=== PATIENT | female | born 1980 | race African-American/Black ===

== ENCOUNTER → 2018-06-07 | Outpatient (CLI) | payer BC ==
[2018-06-07 17:00] LABS: ABSOLUTE BASOPHILS # (AUTO) 0.1 10^3/uL (0.0-0.2); ABSOLUTE EOSINOPHILS # (AUTO) 0.2 10^3/uL (0.0-0.6); ABSOLUTE LYMPHOCYTES (AUTO) 1.7 10^3/uL (0.5-4.7); ABSOLUTE MONOCYTES (AUTO) 0.8 10^3/uL (0.1-1.4); ABSOLUTE NEUT (AUTO) 7.3 10^3/uL (1.7-8.2); BASOPHILS % (AUTO) 0.7 % (0-2); HEMATOCRIT 36.9 % (36.0-47.0); HEMOGLOBIN 12.3 g/dL (12.0-15.5); LYMPHOCYTES % (AUTO) 17.2 % (13-45); MEAN CORPUSCULAR HEMOGLOBIN 26.8 pg (27.0-33.4); MEAN CORPUSCULAR HGB CONC 33.4 g/dL (32.0-36.0); MEAN CORPUSCULAR VOLUME 80 fl (80-97); MONOCYTES % (AUTO) 8.1 % (3-13); PLATELET COUNT 336 10^3/uL (150-450); RED BLOOD COUNT 4.59 10^6/uL (3.72-5.28); RED CELL DISTRIBUTION WIDTH 14.8 % (11.5-14.0); TOTAL CELLS COUNTED % (AUTO) 100 %; WHITE BLOOD COUNT 10.1 10^3/uL (4.0-10.5)
[2018-06-07 17:36] LABS: ALANINE AMINOTRANSFERASE 27 U/L (9-52); ALBUMIN 3.5 g/dL (3.5-5.0); ALKALINE PHOSPHATASE 122 U/L (38-126); ANION GAP 12 (5-19); ASPARTATE AMINO TRANSFERASE 25 U/L (14-36); BILIRUBIN,DIRECT 0.2 mg/dL (0.0-0.4); BILIRUBIN,TOTAL 0.2 mg/dL (0.2-1.3); BLOOD UREA NITROGEN 5 mg/dL (7-20); CALCIUM 9.8 mg/dL (8.4-10.2); CARBON DIOXIDE 20 mmol/L (22-30); CHLORIDE 107 mmol/L (98-107); GLUCOSE 90 mg/dL (75-110); SODIUM 138.5 mmol/L (137-145); TOTAL PROTEIN 6.8 g/dL (6.3-8.2); URIC ACID 3.7 mg/dL (2.5-7.0)
[2018-06-08 16:15] LABS: URINE PROTEIN 13.3 mg/dL (<12)
[2018-06-08 16:18] LABS: 24 HOUR URINE PROTEIN RESULT 382 mg/day (42-225)
== END ==
LOC: LAB 16:39 → LR 06-10 23:58 → UNDOADMIN 06-10 23:58
PROVIDERS: ATTEND Advanced Practice Midwife
DX: O13.9 Gestational [pregnancy-induced] hypertension without significant proteinuria, unspecified trimester (principal)
CPT/HCPCS: 36415; 80053; 83615; 84156; 84550; 85025

== ENCOUNTER 2018-06-11 00:03 | Inpatient (IN) | payer BC ==
[2018-06-11] MEDS ORDERED: DINOPROSTONE 10 MG VAGINAL INSERT.SR PV PRN (00:06)
[2018-06-11] MEDS ORDERED: RINGERS SOLUTION,LACTATED 300 ML IV ONE (00:06)
[2018-06-11] MEDS ORDERED: RINGERS SOLUTION,LACTATED 1,000 ML IV PRN (00:06)
[2018-06-11 00:39] LABS: ABSOLUTE EOSINOPHILS # (AUTO) 0.2 10^3/uL (0.0-0.6); ABSOLUTE LYMPHOCYTES (AUTO) 2.1 10^3/uL (0.5-4.7); ABSOLUTE MONOCYTES (AUTO) 0.8 10^3/uL (0.1-1.4); ABSOLUTE NEUT (AUTO) 6.8 10^3/uL (1.7-8.2); BASOPHILS % (AUTO) 0.4 % (0-2); EOSINOPHILS % (AUTO) 2.1 % (0-6); HEMATOCRIT 37.5 % (36.0-47.0); HEMOGLOBIN 12.6 g/dL (12.0-15.5); LYMPHOCYTES % (AUTO) 20.9 % (13-45); MEAN CORPUSCULAR HEMOGLOBIN 27.2 pg (27.0-33.4); MEAN CORPUSCULAR HGB CONC 33.6 g/dL (32.0-36.0); MEAN CORPUSCULAR VOLUME 81 fl (80-97); MONOCYTES % (AUTO) 8.3 % (3-13); PLATELET COUNT 362 10^3/uL (150-450); RED BLOOD COUNT 4.62 10^6/uL (3.72-5.28); RED CELL DISTRIBUTION WIDTH 15.2 % (11.5-14.0); SEGMENTED NEUTROPHILS % (AUTO) 68.3 % (42-78); TOTAL CELLS COUNTED % (AUTO) 100 %
[2018-06-11 00:46] LABS: APPEARANCE,URINE CLEAR; BILIRUBIN,URINE NEGATIVE (NEGATIVE); COLOR,URINE STRAW; GLUCOSE, URINE NEGATIVE (NEGATIVE); KETONES,URINE NEGATIVE (NEGATIVE); LEUKOCYTE ESTERASE,URINE MODERATE (NEGATIVE); NITRITE,URINE NEGATIVE (NEGATIVE); PROTEIN,URINE NEGATIVE (NEGATIVE); URINE SPECIFIC GRAVITY 1.006; UROBILINOGEN,URINE NEGATIVE mg/dL (<2.0)
[2018-06-11 00:48] LABS: ALANINE AMINOTRANSFERASE 30 U/L (9-52); ALBUMIN 3.6 g/dL (3.5-5.0); ALKALINE PHOSPHATASE 131 U/L (38-126); ANION GAP 15 (5-19); ASPARTATE AMINO TRANSFERASE 25 U/L (14-36); BILIRUBIN,DIRECT 0.2 mg/dL (0.0-0.4); BILIRUBIN,TOTAL 0.3 mg/dL (0.2-1.3); BLOOD UREA NITROGEN 7 mg/dL (7-20); CALCIUM 9.6 mg/dL (8.4-10.2); CARBON DIOXIDE 17 mmol/L (22-30); CHLORIDE 107 mmol/L (98-107); GLUCOSE 110 mg/dL (75-110); POTASSIUM 4.1 mmol/L (3.6-5.0); SODIUM 138.5 mmol/L (137-145); TOTAL PROTEIN 6.4 g/dL (6.3-8.2); URIC ACID 3.8 mg/dL (2.5-7.0)
[2018-06-11 01:01] LABS: URINE AMPHETAMINES SCREEN NEGATIVE; URINE BARBITURATES SCREEN NEGATIVE; URINE BENZODIAZEPINES SCREEN NEGATIVE; URINE COCAINE SCREEN NEGATIVE; URINE MARIJUANA (THC) SCREEN NEGATIVE; URINE METHADONE SCREEN NEGATIVE; URINE PHENCYCLIDINE SCREEN NEGATIVE
[2018-06-11] MEDS ORDERED: DINOPROSTONE 10 MG VAGINAL INSERT.SR ONE (03:46)
--- NOTE | 2018-06-11 08:18 | Admission Physical ---
Datetime Report Generated by CPN: 06/11/2018 08:18 CURRENT ADMISSION Hx Assessment: The History has been Reviewed and is Current Chief Complaint: Scheduled Induction of Labor Indication for Induction: Chronic Primary/Essential HTN; Maternal Diabetes Indication for Induction- Other: AMA Admit Impression : Term, Intrauterine ; No Active Labor; Intact Membranes Admit Plan: Admit to Unit ALLERGIES Medication Allergies: No Medication Allergies: No Known Allergies (06/11/2018) Latex: No Latex Allergies OBSTETRICAL HISTORY EDC: 06/19/2018 00:00 : 3 Para: 1 Term: 0 : 0 SAB: 1 IAB: 0 Ectopic: 0 Livin Cesareans: 0 VBACs: 0 Multiple Births: 0 Gestational Diabetes: No Rh Sensitization: No Incompetent Cervix: No CRISTAL: No Infertility: No ART Treatment: No Uterine Anomaly: No IUGR: No Hx Previous C/S: No Macrosomia: No Hx Loss/Stillborn: Yes PIH: No Hx : No Placenta Previa/Abruption: No Depression/PP Depression: No PTL/PROM: No Post Hemorrhage: No Current Procedures: Ultrasound; NST SEE RECORDS Alcohol: No Marijuana : No Cocaine: No Other Illicit Drugs: No Cigarettes: Never Smoker. 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 Surgery: No Heart Disease: No Hosp/Surgery: Yes Autoimmune Disorder: No Anesthetic Complications: No Kidney Disease: No Abnormal Pap Smear: No Neuro/Epilepsy: No Psychiatric Disorders: No Other Medical Diseases: No Hepatitis/Liver Disease: No Significant Family History: No Varicosities/Phlebitis: No Trauma/Violence : No Thyroid Dysfunction: No Medical History Comments: Childbirth, hx stillbirth @ 33wks; GDM-glyburide INFECTIOUS HISTORY Gonorrhea: No Genital Herpes: No Chlamydia: No Tuberculosis: No Syphilis: No Hepatitis: No HIV/AIDS Exposure: No Rash or Viral Illness: No HPV: No PHYSICAL EXAM General: Normal HEENT: Deferred Neurologic: Normal Thyroid: Normal Heart: Normal Lungs: Normal Breast: Deferred Back: Normal Abdomen: Normal Genitourinary Exam: Normal Extremities: Normal DTRs: Normal Pelvic Type: Adequate Physical Exam Comments: AMA, GDM on Glyburide Hx IUFD @ 33 weeks Gestational HTN, on Procardia 30 MFM consult Vital Signs: Reviewed MEMBRANES Membranes: Intact FETUS A EGA: 38.6 Monitoring: External US Admit Comment: G3 P 1, SAB 2011= 33.6 weeks IUFD Admitted for IOL, A + Cervidil in place, out at 1530 + GBS Family at , POC discussed with pt, VS reviewed, Cat 1 PLANS FOR LABOR AND DELIVERY Labor and Delivery: None Pain Management: Natural; Medications; Epidural Feeding Preference: Both INFORMED CONSENT Assignment: Mónica Corley MD Signature: with User ID: Sera : with User ID: Sera
[2018-06-11] MEDS: DEXTROSE 5%-LACTATED RINGERS 1,000 ML IV PRN ×2 (10:15→21:14)
--- NOTE | 2018-06-11 12:31 | L&D Progress Notes ---
PROGRESS NOTES Datetime Report Generated by CPN: 06/11/2018 12:31 PROGRESS NOTE Comment: Cervidil still in place, eating lunch, family at BS, Cat 1 strip MEMBRANES Membranes: Intact SIGNATURE SIGNATURE: ,[id number];,[id number] SIGNATURE: ,[id number] Assignment: Mónica Corley MD Signature: with User ID: Sera : with User ID: Sera
[2018-06-11] MEDS ORDERED: MISOPROSTOL 0.1 MG TABLET PV ONE ×2 (17:46→22:13)
[2018-06-11] MEDS ORDERED: MISOPROSTOL 0.1 MG TABLET PO ONE ×2 (17:46→22:11)
[2018-06-11] MEDS ORDERED: OXYTOCIN/NORMAL SALINE 20 UNIT/1,000 ML RTUINJ IV PRN (17:46)
[2018-06-11] MEDS ORDERED: MISOPROSTOL 0.1 MG TABLET ONE ×2 (17:52→22:10)
[2018-06-12 01:30] LABS: ABSOLUTE BASOPHILS # (AUTO) 0.1 10^3/uL (0.0-0.2); ABSOLUTE EOSINOPHILS # (AUTO) 0.2 10^3/uL (0.0-0.6); ABSOLUTE MONOCYTES (AUTO) 0.7 10^3/uL (0.1-1.4); ABSOLUTE NEUT (AUTO) 6.5 10^3/uL (1.7-8.2); BASOPHILS % (AUTO) 0.8 % (0-2); EOSINOPHILS % (AUTO) 1.9 % (0-6); HEMATOCRIT 35.6 % (36.0-47.0); HEMOGLOBIN 11.7 g/dL (12.0-15.5); LYMPHOCYTES % (AUTO) 20.8 % (13-45); MEAN CORPUSCULAR HEMOGLOBIN 26.7 pg (27.0-33.4); MEAN CORPUSCULAR HGB CONC 32.9 g/dL (32.0-36.0); MEAN CORPUSCULAR VOLUME 81 fl (80-97); MONOCYTES % (AUTO) 7.1 % (3-13); PLATELET COUNT 322 10^3/uL (150-450); RED CELL DISTRIBUTION WIDTH 15.4 % (11.5-14.0); SEGMENTED NEUTROPHILS % (AUTO) 69.4 % (42-78); TOTAL CELLS COUNTED % (AUTO) 100 %; WHITE BLOOD COUNT 9.4 10^3/uL (4.0-10.5)
[2018-06-12] MEDS ORDERED: FENTANYL CITRATE INJ/PF 100 MCG/2 ML AMPUL ONE (01:58)
[2018-06-12] MEDS ORDERED: EPHEDRINE SULFATE INJ 50 MG/1 ML AMPULE ONE (01:58)
[2018-06-12] MEDS ORDERED: BUPIVACAINE HCL 0.25 % INJ/PF (2.5 MG/1 ML) 30 ML VIAL ONE (01:59)
[2018-06-12] MEDS ORDERED: FENTANYL/BUPIVACAINE/NS/PF 300 MCG/150 ML RTUINJ EPI ONE ×2 (01:59→12:34)
[2018-06-12] MEDS ORDERED: OXYTOCIN/NORMAL SALINE 20 UNIT/1,000 ML RTUINJ ONE ×2 (02:36)
[2018-06-12] MEDS ORDERED: LIDOCAINE 1% INJ-PF (10 MG/ML) 30 ML SDV ONE (02:36)
[2018-06-12] MEDS ORDERED: MISOPROSTOL 0.2 MG TABLET ONE (02:36)
[2018-06-12] MEDS ORDERED: PENICILLIN G-K 5 MILLION UNIT VIAL ONE ×3 (05:50→13:51)
--- NOTE | 2018-06-12 09:34 | L&D Progress Notes ---
PROGRESS NOTES Datetime Report Generated by CPN: 06/12/2018 09:33 PROGRESS NOTE Impression: Reassuring Heart Rate Plan: Continue Present Management; Induction Informed Consent Obtained: Vaginal Delivery Vital Signs : Reviewed; Within Normal Limits Comment: Cat 1 strip, Irregular UC's FETUS A FHR - Baseline: 130 Monitoring: External US Variability: Moderate 6-25bpm Accelerations: 15X15 Decelerations: None FETUS C SIGNATURE: 13,[id number];10,[id number] Assignment: Bailey Calzada MD Signature: with User ID: Sera : with User ID: Sera
--- NOTE | 2018-06-12 11:46 | L&D Progress Notes ---
PROGRESS NOTES Datetime Report Generated by CPN: 06/12/2018 11:46 PROGRESS NOTE Vital Signs : Reviewed; Within Normal Limits Comment: Irregular uc's, Cat 1 strip, epidural in place, feeling uc's FETUS A FHR - Baseline: 130 Variability: Moderate 6-25bpm Accelerations: 15X15 Decelerations: Variable FETUS C SIGNATURE: [id number];13,[id number] Assignment: Bailey Calzada MD Signature: with User ID: Sera : with User ID: Sera
[2018-06-12] MEDS ORDERED: LIDOCAINE 1.5%/EPINEPHRINE INJ-PF 30 ML SDV ONE (12:31)
[2018-06-12] MEDS ORDERED: SODIUM BICARBONATE 8.4% INJ 50 MEQ/50 ML DISP.SYRIN ONE (12:34)
[2018-06-12] MEDS ORDERED: DIPHENHYDRAMINE HCL 25 MG CAPSULE PO PRN (15:38)
[2018-06-12] MEDS ORDERED: PSEUDOEPHEDRINE HCL 30 MG TABLET PO PRN (15:38)
[2018-06-12] MEDS ORDERED: PROMETHAZINE HCL 25 MG TABLET PO PRN (15:38)
[2018-06-12] MEDS ORDERED: MEASLES,MUMPS&RUBELLA VACC/PF 0.5 ML VIAL SUBCUT PRN ×2 (15:38→16:09)
[2018-06-12] MEDS ORDERED: PROMETHAZINE HCL INJ 25 MG/1 ML VIAL IV PRN (15:38)
[2018-06-12] MEDS ORDERED: OXYTOCIN/NORMAL SALINE 20 UNIT/1,000 ML RTUINJ IV PRN ×2 (15:38→16:09)
[2018-06-12] MEDS ORDERED: ZOLPIDEM TARTRATE 5 MG TABLET PO PRN (15:38)
[2018-06-12] MEDS ORDERED: PROMETHAZINE HCL 25 MG SUPP.RECT PR PRN (15:38)
[2018-06-12] MEDS ORDERED: ACETAMINOPHEN 650 MG SUPP.RECT PR PRN (15:38)
[2018-06-12] MEDS ORDERED: MAGNESIUM HYDROXIDE SUSP 30 ML UDCUP PO PRN (15:38)
[2018-06-12] MEDS ORDERED: ACETAMINOPHEN WITH CODEINE #3 TABLET PO PRN ×4 (15:38→16:09)
[2018-06-12] MEDS ORDERED: DIPH/PERTUSS(ACELL)/TETANUS VAC/PF 0.5 ML SYR (>=10YO) IM PRN ×2 (15:38→16:09)
[2018-06-12] MEDS ORDERED: GLYCERIN/WITCH HAZEL LEAF 1 EACH MED..PAD TP PRN (15:38)
[2018-06-12] MEDS ORDERED: DIBUCAINE 1% OINTMENT 28 GM TP PRN ×2 (15:38→16:09)
[2018-06-12] MEDS ORDERED: BENZOCAINE/MENTHOL AEROSOL SPRAY 56 ML TOP PRN ×2 (15:38→16:09)
[2018-06-12] MEDS ORDERED: NA PHOS,M-B/NA PHOS,DI-BA (ADULT) 133 ML ENEMA PR PRN (15:38)
[2018-06-12] MEDS ORDERED: NALBUPHINE HCL INJ 10 MG/1 ML AMPULE INJ ONE (15:45)
[2018-06-12] MEDS ORDERED: MISOPROSTOL 0.2 MG TABLET PR PRN (16:09)
--- NOTE | 2018-06-12 16:53 | Warning Signs in Babies ---
VOD Warning Signs Datetime Report Generated by [facility]: 06/12/2018 16:53 VOD#608 -Warning Signs in Babies: Needs to be viewed. (06/12/2018 16:15:Ninoska Colrey RN)
[2018-06-12] MEDS ORDERED: DOCUSATE SODIUM 100 MG CAPSULE PO SCH (18:00)
[2018-06-12] MEDS ORDERED: FERROUS SULFATE 325 MG TABLET PO SCH (18:00)
[2018-06-12] MEDS: NIFEDIPINE 30 MG TAB.ER.24 PO SCH (19:01)
[2018-06-12] MEDS: IBUPROFEN 800 MG TABLET PO SCH (21:43)
[2018-06-12] MEDS: FAMOTIDINE 20 MG TABLET PO SCH (21:43)
[2018-06-12] MEDS ORDERED: IBUPROFEN 800 MG TABLET PO SCH (22:00)
[2018-06-13] MEDS: IBUPROFEN 800 MG TABLET PO SCH ×3 (05:15→21:23)
[2018-06-13 07:16] LABS: HEMOGLOBIN 11.3 g/dL (12.0-15.5); MEAN CORPUSCULAR HEMOGLOBIN 26.4 pg (27.0-33.4); MEAN CORPUSCULAR HGB CONC 32.3 g/dL (32.0-36.0); MEAN CORPUSCULAR VOLUME 82 fl (80-97); PLATELET COUNT 370 10^3/uL (150-450); RED BLOOD COUNT 4.28 10^6/uL (3.72-5.28); RED CELL DISTRIBUTION WIDTH 15.1 % (11.5-14.0); WHITE BLOOD COUNT 17.8 10^3/uL (4.0-10.5)
[2018-06-13] MEDS: DOCUSATE SODIUM 100 MG CAPSULE PO SCH ×3 (09:37→17:47)
[2018-06-13] MEDS: FERROUS SULFATE 325 MG TABLET PO SCH ×3 (09:37→17:48)
[2018-06-13] MEDS: NIFEDIPINE 30 MG TAB.ER.24 PO SCH ×2 (09:39→17:47)
[2018-06-13] MEDS: FAMOTIDINE 20 MG TABLET PO SCH ×2 (09:44→21:23)
[2018-06-13] MEDS: PRENATAL VITAMIN W DHA CAPSULE PO SCH (09:44)
[2018-06-13] MEDS: SENNOSIDES/DOCUSATE 8.6-50 MG 1 EACH TABLET PO SCH (09:50)
[2018-06-13] MEDS ORDERED: SENNOSIDES/DOCUSATE 8.6-50 MG 1 EACH TABLET PO SCH (10:00)
[2018-06-13] MEDS ORDERED: PRENATAL VITAMIN W DHA CAPSULE PO SCH (10:00)
--- NOTE | 2018-06-13 10:49 | PDOC PROGRESS REPORT ---
Subjective-OB Progress Note for:: 06/13/18 Subjective: pt without complaints Physical Exam (OB) Vital Signs: Temp Pulse Resp BP Pulse Ox 97.9 F 77 15 127/67 H 98 06/13/18 08:03 06/13/18 08:03 06/13/18 08:03 06/13/18 08:03 06/13/18 08:03 Intake & Output 06/12/18 06/13/18 06/14/18 06:59 06:59 06:59 Intake Total 1000 1000 Balance 1000 1000 - General General Appearance: Appears well - PIH/Pre-Eclampsia DTR's: 1 + Clonus: Negative Headache: Absent Epigastric Pain: No Visual Changes: No - Lochia Lochia Amount: Scant < 10 ml Lochia Color: Rubra/Red - Abdomen Description: Firm, Soft Hernia Present: No Flatus Presence: Present Fundal Description: Firm Fundal Height: u/u - u/2 - Extremities Calf: Nontender Objective-Diagnostic Laboratory: 06/13/18 06:42 06/11/18 00:22 06/13/18 06:42 WBC 17.8 H RBC 4.28 Hgb 11.3 L Hct 35.0 L MCV 82 MCH 26.4 L MCHC 32.3 RDW 15.1 H Plt Count 370 Assessment and Plan(PN) - Assessment and Plan (1) AMA (advanced maternal age) primigravida 35+ Qualifiers: Trimester: unspecified trimester Qualified Code(s): O09.519 - Supervision of elderly primigravida, unspecified trimester Is this a current diagnosis for this admission?: Yes (2) Gestational diabetes mellitus Qualifiers: Gestational diabetes mellitus control: oral hypoglycemic-controlled Is this a current diagnosis for this admission?: Yes (3) Vacuum extraction, delivered, current hospitalization Is this a current diagnosis for this admission?: Yes - Time Spent with Patient Time with patient: Less than 15 minutes - Disposition Anticipated Discharge: Home Within: within 24 hours
[2018-06-14] MEDS: IBUPROFEN 800 MG TABLET PO SCH ×2 (05:06→13:24)
--- NOTE | 2018-06-14 08:31 | Delivery Summary ---
Del Sum A-C Datetime Report Generated by CPN: 06/14/2018 08:30 DELIVERY PERSONNEL DELIVERY PERSONNEL: [id number] Delivery Doctor:: Bailey Calzada MD Nurse Branch Banker Certified:: Shanon Taylor CNM Labor and Delivery Nurse:: Ninoska Corley RNged teacher Nurse:: Tali Carnes RN Nursery Nurse:: Mouna Shea RN Director Multimedia/EHS MANAGER: Danitza Gerber ST Director Multimedia/EHS MANAGER: Katty Doll, EHS MANAGER II MATERNAL INFORMATION Delivery Anesthesia: Local; Epidural Medications After Delivery: Pitocin Bolus-Please Comment; Pitocin Drip 20 Units/1000ml NSS; Cytotec 600mcg Per Rectum/Vagina Maternal Complications: None Provider Comments: Pt pushing, heart rate down , Dr. Clazada notified Vac applied x 1 with delivery of , placec on mothers abd, suctioned, nursery at BS, OA to SALINA over ML and vaginal lac, spont delivery of grossly nl intact placenta, 3 VC, cord blood to lab, Laceration repaired without difficulty , rectum patent, mom and baby remain in recovery in stable condition LABOR SUMMARY EDC: 06/19/2018 00:00 No. Babies in Womb: 1 Attempted: No Labor Anesthesia: Epidural LABOR INFORMATION Reason for Induction: Chronic Secondary Hypertension (Specify Cause); Maternal Diabetes; Other Reason for Induction- Other: IUFD; AMA Onset of Labor: 06/12/2018 06:48 Complete Dilatation: 06/12/2018 15:08 Cervical Ripening Agents: Cytotec @ (Annotations: Cytotec administered 0.05 mg PO and 0.025 mg PV, patient tolerated well. ) Cervical Ripening Agents: Cervidil Cervical Ripening Agents: Cervidil Oxytocin: Induction Group B Beta Strep: Positive Antibiotics # of Doses: 1350 Antibiotics Time of Last Dose: 935 Name of Antibiotic Given: PENICILLIN G Steroids Given: None Reason Steroids Not Administered: Not Applicable MEMBRANES Membranes Rupture Method: Artificial Rupture of Membranes: 06/12/2018 06:48 Length of Rupture (hr): 8.77 Amniotic Fluid Color: Clear Amniotic Fluid Amount: Moderate STAGES OF LABOR Stage 1 hr: 8 Stage 1 min: 20 Stage 2 hr: 0 Stage 2 min: 26 Stage 3 hr: 0 Stage 3 min: 4 Total Time in Labor hr: 8 Total Time in Labor min: 50 VAGINAL DELIVERY Episiotomy: None Laceration #1: Vaginal Laceration Extension #1: Second Degree Other Laceration: MIDLINE VAGINAL Laceration Repair: Yes Laceration Repair Note: 2-0 chromic Sponge Count Correct: N/A Sharps Count Correct: N/A CSECTION DELIVERY Primary Indication: N/A Secondary Indication: N/A CSection Incidence: N/A Labor: N/A Elective: N/A CSection Incision: N/A BABY A INFORMATION Delivery Date/Time: 06/12/2018 15:34 Method of Delivery: Vaginal Method of Delivery: Vaginal Born in Route : No : N/A Forceps: N/A Vacuum Extraction: Successful Shoulder Dystocia : No ASSISTED DELIVERY BABY A Indication for Assisted Delivery: bradycardia Catheter Prior to Procedure: No Station Vacuum/Forcep Apply: Position Vacuum/Forcep Apply: Right Occipital Anterior Vacuum Number of Pulls: one Vacuum Number of PopOffs: zero Reduce Pressure btwn Ctx: NA Vacuum Kettle Girl: kiwi Total Time Vacuum Applied: 5 seconds Vacuum/Forceps Comment: Very easy pull with kiwi pressure in the green. PRESENTATION/POSITION BABY A Presentation: Cephalic Cephalic Presentation: Vertex Vertex Position: Right Occipital Anterior Breech Presentation: N/A PLACENTA INFORMATION BABY A Placenta Delivery Time : 06/12/2018 15:38 Placenta Method of Delivery: Spontaneous Placenta Status: Delivered SCORES BABY A Heart Rate 1 min: >100 bpm Resp Effort 1 min: Good Cry Reflex Irritability 1 min: Cough or Sneeze or Pulls Away Muscle Tone 1 min: Active Motion Color 1 min: Blue/Pale Resuscitation Effort 1 min: Tactile Stimulation SCORE 1 MIN: 8 Heart Rate 5 min: >100 bpm Resp Effort 5 min: Good Cry Reflex Irritability 5 min: Cough or Sneeze or Pulls Away Muscle Tone 5 min: Active Motion Color 5 min: Body [place], Extremities Blue Resuscitation Effort 5 min: Tactile Stimulation SCORE 5 MIN: 9 INFANT INFORMATION BABY A Gestational Age at Delivery: 39.0 Gestational Status: Full Term- 39- 40.6 Weeks Infant Outcome : Liveborn Infant Condition : Stable Infant Sex: Male Infant Sex: Male IDENTIFICATION BABY A Infant Verification Date/Time: 06/12/2018 16:42 ID Band Number: [id number] Mother's Name Verified: Yes Infant RN Verifying Infant: Marga Corley, RN, L. Tonend, RN WEIGHT/LENGTH BABY A Birthweight (gm): 3110 Infant Weight (lb): 6 Weight (oz): 14 Length (in): 20.00 Infant Length (cm): 50.80 CORD INFORMATION BABY A No. Cord Vessels: 3 Nuchal Cord : Around Neck x1, Loose Cord Blood Taken: Yes-For Storage (Mom's Blood type +) Suction: None ASSESSMENT BABY A Complications: Extended Bradycardia; Multiple Variable Decels Physical Findings at Delivery: Molding of the Head Infant Respirations: Appears Normal Skin to Skin: Yes Skin to Skin: Yes Skin to Skin Time (min): 60 Quality Assurance Supervisor Body/ALS Called : No Infant Care By: Latoya SHEA RN Transferred To: Remains with Mother BABY B INFORMATION : N/A SIGNATURES Signature: with User ID: [email or web address]
[2018-06-14 09:22] VITALS: BP 133/71
[2018-06-14] MEDS: FAMOTIDINE 20 MG TABLET PO SCH (10:16)
[2018-06-14] MEDS: DOCUSATE SODIUM 100 MG CAPSULE PO SCH (10:16)
[2018-06-14] MEDS: NIFEDIPINE 30 MG TAB.ER.24 PO SCH (10:16)
[2018-06-14] MEDS: FERROUS SULFATE 325 MG TABLET PO SCH (10:16)
[2018-06-14] MEDS: PRENATAL VITAMIN W DHA CAPSULE PO SCH (10:16)
[2018-06-14] MEDS: SENNOSIDES/DOCUSATE 8.6-50 MG 1 EACH TABLET PO SCH (10:21)
--- NOTE | 2018-06-14 12:24 | PDOC DISCHARGE SUMMARY ---
Final Diagnosis Discharge Date: 06/14/18 - Final Diagnosis (1) Hypertension Is this a current diagnosis for this admission?: Yes (2) Gestational diabetes mellitus Is this a current diagnosis for this admission?: Yes (3) Vacuum extraction, delivered, current hospitalization Is this a current diagnosis for this admission?: Yes Discharge Data - Discharge Medication Prescriptions: Ibuprofen [Motrin 800 mg Tablet] 800 mg PO Q8 #60 tablet Nifedipine [Procardia XL 30 mg Tablet] 30 mg PO BID #60 tab.er.24 Home Medications: Pv W-O Vit A/Iron,Carbonyl/FA [Prenatabs Obn Tablet] 1 each PO DAILY 08/23/12 Ibuprofen [Motrin 800 mg Tablet] 800 mg PO Q8 #60 tablet 06/14/18 Nifedipine [Procardia XL 30 mg Tablet] 30 mg PO BID #60 tab.er.24 06/14/18 Procedures: NST Intrapartum Procedure(s): Spontaneous Vaginal Delivery Complication(s): Laceration-Vaginal - Diagnosis Test Laboratory: Temp Pulse Resp BP Pulse Ox 98.2 F 87 16 133/71 H 99 06/14/18 07:50 06/14/18 07:50 06/14/18 07:50 06/14/18 07:50 06/14/18 07:50 06/11/18 06/11/18 06/12/18 00:15 00:22 01:19 RBC 4.62 4.40 Hgb 12.6 11.7 L Hct 37.5 35.6 L Urine Opiates Screen NEGATIVE 06/13/18 06:42 RBC 4.28 Hgb 11.3 L Hct 35.0 L Urine Opiates Screen - Discharge information/Instructions Discharge Activity: Balance Activity w/Rest, Pelvic Rest Discharge Diet: Regular Disposition: HOME, SELF-CARE Follow up with: [facility] in: 1, Weeks - for BP check
== END 2018-06-14 17:13 | disposition home or self-care (01) | DRG 774 ==
LOC: LR 00:03 → 2S 06-12 18:15
PROVIDERS: ADMIT Obstetrics & Gynecology; ATTEND Obstetrics & Gynecology
PROC: 3E0P7VZ Introduction of Hormone into Female Reproductive, Via Natural or Artificial Opening (ICD-10-PCS; 2018-06-11)
PROC: 10D07Z6 Extraction of Products of Conception, Vacuum, Via Natural or Artificial Opening (ICD-10-PCS; principal; 2018-06-12)
PROC: 4A1HXCZ Monitoring of Products of Conception, Cardiac Rate, External Approach (ICD-10-PCS; 2018-06-12)
DX: O76 Abnormality in fetal heart rate and rhythm complicating labor and delivery (principal); O10.02 Pre-existing essential hypertension complicating childbirth; Z37.0 Single live birth; O24.425 Gestational diabetes mellitus in childbirth, controlled by oral hypoglycemic drugs; O70.1 Second degree perineal laceration during delivery; O69.81X0 Labor and delivery complicated by cord around neck, without compression, not applicable or unspecified; O99.824 Streptococcus B carrier state complicating childbirth; Z3A.39 39 weeks gestation of pregnancy; Z87.59 Personal history of other complications of pregnancy, childbirth and the puerperium
CPT/HCPCS: 36415; 80053; 80307; 81001; 83615; 84550; 85025; 85027; 86592; 86850; 86900; 86901; 90715; J2540; J2590; J3010; J3490